=== PATIENT | male | born 1965 | race Caucasian/White ===

== ENCOUNTER 2019-05-24 10:29 | Observation (INO) ==
[2019-05-24 11:01] LABS: Basophils # 0.1 K/mcL (0.0-0.2); Basophils % 0.6 %; Eosinophils # 0.7 K/mcL (0.0-0.6); Hematocrit 43.5 % (37.5-50.1); Hemoglobin 14.6 g/dL (12.9-16.9); Immature Granulocytes % 0.6 % (0-4); Lymphocytes # 2.4 K/mcL (0.6-4.6); Lymphocytes % 18.1 %; Mean Corpuscular HGB Conc 33.6 g/dL (31.6-35.5); Mean Corpuscular Hemoglobin 29.7 pg (28.0-33.3); Mean Corpuscular Volume 88.4 fL (83.0-100.0); Monocytes # 1.1 K/mcL (0.0-1.3); Monocytes % 7.9 %; Platelet Count 307 K/mcL (140-400); Red Blood Count 4.92 M/mcL (4.19-5.50); Red Cell Distribution Width 13.4 % (11.5-14.5); Segmented Neutrophils % 67.8 %; White Blood Count 13.3 K/mcL (4.3-11.1)
[2019-05-24 11:34] LABS: Alanine Aminotransferase 26 Units/L (7-52); Albumin 3.5 g/dL (3.5-5.7); Albumin/Globulin Ratio 1.4 (1.1-2.2); Alkaline Phosphatase 53 Units/L (34-104); Aspartate Amino Transferase 15 Units/L (13-39); BUN/Creatinine Ratio 29 (6-26); Bilirubin,Direct 0.1 mg/dL (0.0-0.2); Bilirubin,Indirect 0.6 mg/dL (0.0-1.0); Bilirubin,Total 0.7 mg/dL (0.3-1.0); Blood Urea Nitrogen 19 mg/dL (6-20); Calcium 7.8 mg/dL (8.6-10.3); Carbon Dioxide 21 mEq/L (23-29); Chloride 109 mEq/L (98-107); Globulin 2.5 g/dL (2.4-3.5); Glucose 175 mg/dL (70-105); Magnesium 1.6 mg/dL (1.6-2.6); Osmolality,Calculated 295 (280-300); Potassium 3.7 mEq/L (3.5-5.1); Sodium 139 mEq/L (136-145); Troponin I 0.04 ng/mL (< 0.04); eGFR For African Americans > 60 (> 60); eGFR For Non-African Americans > 60 (> 60)
[2019-05-24] MEDS ORDERED: Furosemide 40 MG/4 ML VIAL IVP ONE ×2 (11:41→17:00)
[2019-05-24] MEDS ORDERED: Nitroglycerin 0.4 MG TAB.SUBL SL ONE (11:41)
[2019-05-24] MEDS ORDERED: Aspirin 325 MG TABLET PO ONE (12:01)
[2019-05-24] MEDS ORDERED: Azithromycin 500 MG in 0.9 % Sodium Chloride 250 ML IVPB ONE (13:21)
[2019-05-24] MEDS ORDERED: cefTRIAXone 1,000 MG in Water for inj. (sterile) 10 ML IVP ONE (13:21)
[2019-05-24] MEDS ORDERED: Ondansetron ODT 4 MG TAB.RAPDIS SL PRN (15:23)
[2019-05-24] MEDS ORDERED: Acetaminophen 325 MG TABLET PO PRN (15:23)
[2019-05-24] MEDS ORDERED: Naloxone 0.4 MG/ML INJ IVP PRN (15:23)
[2019-05-24] MEDS: *HR* Heparin 5,000 UNIT/ML VIAL SQ SCH (18:02)
[2019-05-25] MEDS: *HR* Heparin 5,000 UNIT/ML VIAL SQ SCH (06:16)
[2019-05-25 06:48] LABS: Basophils # 0.1 K/mcL (0.0-0.2); Basophils % 0.7 %; Eosinophils # 0.5 K/mcL (0.0-0.6); Eosinophils % 4.4 %; Hemoglobin 14.1 g/dL (12.9-16.9); Immature Granulocytes % 0.6 % (0-4); Lymphocytes # 2.6 K/mcL (0.6-4.6); Lymphocytes % 24.9 %; Mean Corpuscular HGB Conc 32.8 g/dL (31.6-35.5); Mean Corpuscular Hemoglobin 29.6 pg (28.0-33.3); Mean Corpuscular Volume 90.3 fL (83.0-100.0); Neutrophils # 6.4 K/mcL (1.6-8.9); Platelet Count 303 K/mcL (140-400); Red Blood Count 4.76 M/mcL (4.19-5.50); Red Cell Distribution Width 13.3 % (11.5-14.5); Segmented Neutrophils % 60.4 %; White Blood Count 10.5 K/mcL (4.3-11.1)
[2019-05-25 07:08] LABS: BUN/Creatinine Ratio 20 (6-26); Blood Urea Nitrogen 19 mg/dL (6-20); Calcium 8.9 mg/dL (8.6-10.3); Carbon Dioxide 28 mEq/L (23-29); Chloride 103 mEq/L (98-107); Glucose 181 mg/dL (70-105); Osmolality,Calculated 295 (280-300); Sodium 139 mEq/L (136-145); eGFR For African Americans > 60 (> 60); eGFR For Non-African Americans > 60 (> 60)
[2019-05-25] MEDS ORDERED: Perflutren Lipid Microsphere 1.3 ML in 0.9 % Sodium Chloride 8.7 ML IVP ONE (07:30)
[2019-05-25] MEDS ORDERED: Perflutren Lipid Microsphere 2 ML VIAL ONE (07:36)
[2019-05-25] MEDS ORDERED: Furosemide 20 MG TABLET PO SCH (09:00)
[2019-05-25] MEDS ORDERED: Azithromycin 250 MG TABLET PO SCH (09:00)
[2019-05-25] MEDS ORDERED: cefTRIAXone 1,000 MG in Water for inj. (sterile) 10 ML IVP SCH (09:00)
[2019-05-25 10:40] VITALS: BP 120/75
[2019-05-25] MEDS ORDERED: Furosemide 40 MG/4 ML VIAL IVP SCH (10:45)
[2019-05-25 12:15] LABS: Estimated Average Glucose 209 mg/dl
== END 2019-05-25 12:51 | disposition home or self-care (01) ==
LOC: EMEROOARM 10:29 → 3BNU 10:29 → SUATTDRO 13:47 → 3BNU 15:05
PROVIDERS: ADMIT Internal Medicine; ATTEND Internal Medicine

== ENCOUNTER 2019-05-27 08:03 | Inpatient (IN) ==
[2019-05-27] MEDS ORDERED: Aspirin 81 MG TAB.CHEW PO ONE (08:23)
[2019-05-27] MEDS ORDERED: Nitroglycerin 0.4 MG TAB.SUBL SL PRN (08:23)
[2019-05-27 08:49] LABS: Basophils # 0.1 K/mcL (0.0-0.2); Basophils % 0.7 %; Eosinophils # 0.5 K/mcL (0.0-0.6); Eosinophils % 4.6 %; Hematocrit 41.7 % (37.5-50.1); Hemoglobin 14.5 g/dL (12.9-16.9); Immature Granulocytes % 0.5 % (0-4); Lymphocytes # 2.3 K/mcL (0.6-4.6); Lymphocytes % 20.6 %; Mean Corpuscular HGB Conc 34.8 g/dL (31.6-35.5); Mean Corpuscular Hemoglobin 29.8 pg (28.0-33.3); Mean Corpuscular Volume 85.6 fL (83.0-100.0); Mean Platelet Volume 9.4 fL (9.4-12.4); Monocytes # 0.9 K/mcL (0.0-1.3); Monocytes % 8.1 %; Neutrophils # 7.2 K/mcL (1.6-8.9); Platelet Count 324 K/mcL (140-400); Red Blood Count 4.87 M/mcL (4.19-5.50); Red Cell Distribution Width 13.2 % (11.5-14.5); Segmented Neutrophils % 65.5 %
[2019-05-27 08:58] LABS: Prothrombin Time 11.2 Seconds (9.4-12.1)
[2019-05-27 09:00] LABS: Activated Partial Thrombo Time 29.4 Seconds (26.0-36.0)
[2019-05-27 09:08] LABS: BUN/Creatinine Ratio 30 (6-26); Blood Urea Nitrogen 21 mg/dL (6-20); Calcium 9.2 mg/dL (8.6-10.3); Carbon Dioxide 24 mEq/L (23-29); Chloride 105 mEq/L (98-107); Glucose 182 mg/dL (70-105); Osmolality,Calculated 296 (280-300); Potassium 3.8 mEq/L (3.5-5.1); Sodium 139 mEq/L (136-145); Troponin I 0.03 ng/mL (< 0.04); eGFR For African Americans > 60 (> 60); eGFR For Non-African Americans > 60 (> 60)
[2019-05-27] MEDS ORDERED: *HR* Heparin 5,000 UNIT/ML VIAL IVP ONE (09:21)
[2019-05-27] MEDS ORDERED: *HR* Heparin 5,000 UNIT/ML VIAL IVP PRN ×2 (09:21)
[2019-05-27] MEDS: Heparin 25,000 UNIT/250 ML D5W 25,000 UNIT/250 ML IV.SOLN IVC SCH (10:01)
[2019-05-27] MEDS ORDERED: Ondansetron 4 MG/2 ML VIAL IVP PRN (11:47)
[2019-05-27] MEDS ORDERED: Naloxone 0.4 MG/ML INJ IVP PRN (11:47)
[2019-05-27] MEDS ORDERED: D5% in Water 1,000 ML IVC PRN (11:54)
[2019-05-27] MEDS ORDERED: *HR* Dextrose 50 % in Water (Syg) 50 ML SYRINGE IVP PRN (11:54)
[2019-05-27] MEDS ORDERED: Dextrose Gel 15 GM/37.5 ML TUBE PO PRN ×2 (11:54)
[2019-05-27] MEDS ORDERED: Insulin LISPRO 300 UNITS/3 ML VIAL SQ SCH (12:00)
[2019-05-27] MEDS: Insulin LISPRO 300 UNITS/3 ML VIAL SQ SCH ×3 (13:36→20:08)
[2019-05-27] MEDS: Acetaminophen 325 MG TABLET PO PRN (15:10)
[2019-05-27] MEDS: *HR* Metoprolol 5 MG/5 ML VIAL IVP PRN (15:13)
[2019-05-27 16:24] LABS: Estimated Average Glucose 209 mg/dl
[2019-05-27] MEDS ORDERED: *HR* Metoprolol 5 MG/5 ML VIAL IVP ONE (19:53)
[2019-05-27] MEDS: Cefdinir 300 MG CAPSULE PO SCH (22:57)
[2019-05-28] MEDS ORDERED: Insulin LISPRO 300 UNITS/3 ML VIAL SQ SCH (00:01)
[2019-05-28 01:04] LABS: Basophils # 0.1 K/mcL (0.0-0.2); Basophils % 0.7 %; Eosinophils # 0.6 K/mcL (0.0-0.6); Eosinophils % 4.7 %; Hematocrit 43.5 % (37.5-50.1); Hemoglobin 14.5 g/dL (12.9-16.9); Immature Granulocytes % 0.6 % (0-4); Lymphocytes % 23.5 %; Mean Corpuscular HGB Conc 33.3 g/dL (31.6-35.5); Mean Corpuscular Hemoglobin 29.7 pg (28.0-33.3); Mean Corpuscular Volume 89.1 fL (83.0-100.0); Mean Platelet Volume 9.7 fL (9.4-12.4); Monocytes % 7.8 %; Neutrophils # 7.9 K/mcL (1.6-8.9); Platelet Count 291 K/mcL (140-400); Red Blood Count 4.88 M/mcL (4.19-5.50); Red Cell Distribution Width 13.2 % (11.5-14.5); Segmented Neutrophils % 62.7 %; White Blood Count 12.6 K/mcL (4.3-11.1)
[2019-05-28 01:13] LABS: Alanine Aminotransferase 34 Units/L (7-52); Albumin 3.7 g/dL (3.5-5.7); Albumin/Globulin Ratio 1.4 (1.1-2.2); Alkaline Phosphatase 57 Units/L (34-104); Aspartate Amino Transferase 20 Units/L (13-39); BUN/Creatinine Ratio 21 (6-26); Bilirubin,Total 0.7 mg/dL (0.3-1.0); Blood Urea Nitrogen 15 mg/dL (6-20); Calcium 8.8 mg/dL (8.6-10.3); Carbon Dioxide 19 mEq/L (23-29); Chloride 104 mEq/L (98-107); Chol/HDL Ratio 5.6 (0-4.9); Cholesterol 178 mg/dL (< 200); Globulin 2.7 g/dL (2.4-3.5); Glucose 154 mg/dL (70-105); HDL Cholesterol 32 mg/dL (40-59); LDL Cholesterol,Calculated 92 mg/dL (0-99); Osmolality,Calculated 284 (280-300); Potassium 3.9 mEq/L (3.5-5.1); Sodium 135 mEq/L (136-145); Total Protein 6.4 g/dL (6.4-8.9); Triglycerides 271 mg/dL (< 150); eGFR For African Americans > 60 (> 60); eGFR For Non-African Americans > 60 (> 60)
[2019-05-28] MEDS: Heparin 25,000 UNIT/250 ML D5W 25,000 UNIT/250 ML IV.SOLN IVC SCH (05:41)
[2019-05-28] MEDS ORDERED: NON-FORMULARY MEDICATION 1 EACH EACH (Lisinopril 2.5 MG) PO SCH (09:00)
[2019-05-28] MEDS: Aspirin 81 MG TAB.CHEW PO SCH (13:54)
[2019-05-28] MEDS: Insulin LISPRO 300 UNITS/3 ML VIAL SQ SCH ×3 (13:54→21:29)
[2019-05-28] MEDS: Azithromycin 250 MG TABLET PO SCH (13:55)
[2019-05-28] MEDS: Furosemide 40 MG TABLET PO SCH (13:55)
[2019-05-28] MEDS: Cefdinir 300 MG CAPSULE PO SCH ×2 (13:55→21:29)
[2019-05-28] MEDS ORDERED: *HR* Heparin 10,000 UNIT/10 ML VIAL ONE (14:52)
[2019-05-28] MEDS ORDERED: Nitroglycerin 1,000 MCG/10 ML VIAL IV ONE (14:52)
[2019-05-28] MEDS ORDERED: 0.9 % Sodium Chloride 2,000 ML ONE (14:52)
[2019-05-28] MEDS ORDERED: ISOVUE-370 200 ML INFUS..BTL ONE (14:52)
[2019-05-28] MEDS ORDERED: Heparin 1,000 UNITS/500 mL 500 ML ONE (14:52)
[2019-05-28] MEDS ORDERED: *HR* FentaNYL (PF) 100 MCG/2 ML VIAL ONE (15:14)
[2019-05-28] MEDS ORDERED: *HR* Midazolam HCl 2 MG/2 ML VIAL ONE (15:14)
[2019-05-28] MEDS ORDERED: 0.9 % Sodium Chloride 1,000 ML IVC SCH (16:30)
[2019-05-28] MEDS: *HR* Metoprolol 5 MG/5 ML VIAL IVP PRN (23:18)
[2019-05-29] MEDS: Acetaminophen 325 MG TABLET PO PRN (02:31)
[2019-05-29] MEDS: Cefdinir 300 MG CAPSULE PO SCH (10:32)
[2019-05-29] MEDS: Insulin LISPRO 300 UNITS/3 ML VIAL SQ SCH ×2 (10:32→13:20)
[2019-05-29] MEDS: Aspirin 81 MG TAB.CHEW PO SCH (10:33)
[2019-05-29] MEDS: Azithromycin 250 MG TABLET PO SCH (10:33)
[2019-05-29] MEDS: Furosemide 40 MG TABLET PO SCH (10:34)
[2019-05-29 16:46] VITALS: BP 140/94
[2019-05-29] MEDS ORDERED: carvediloL 6.25 MG TABLET PO SCH (17:00)
== END 2019-05-29 18:46 | disposition home or self-care (01) | DRG 286 ==
LOC: EMEROOARM 08:03 → CDU 08:03 → SUATTDRO 10:40 → CDU 11:13 → 2NENU 05-28 22:56
PROVIDERS: ADMIT Internal Medicine; ATTEND Internal Medicine